=== PATIENT | female | born 1990 | race Caucasian/White ===

== ENCOUNTER → 2017-03-09 | Outpatient (CLI) | payer SELFPAY ==
[~2017-03-09] MED LIST: CYCL-375 PO; HYDR-4246 PO; NAPR500T PO; PARO-38 PO; TRAM50TA4 PO
--- NOTE | 2017-03-09 10:19 | DI ---
Indication: ITS.REASON: M54.9 DORSALGIA PROCEDURE: LUMBAR SPINE COMP W/O BEND: Encounter: Initial Comparison: None Findings: Alignment of the lumbar spine shows slightly exaggerated lordosis. No acute fracture or subluxation. Bilateral L5 spondylolysis and grade 1 spondylolisthesis of L5 on S1. Vertebral body heights are maintained. Impression: Grade 1 spondylolisthesis of L5 on S1. .
== END ==
LOC: IMA 09:25
PROVIDERS: ATTEND Nurse Practitioner Family
DX: M43.17 Spondylolisthesis, lumbosacral region (principal); M54.9 Dorsalgia, unspecified